=== PATIENT | male | born 1985 | race Caucasian/White ===

== ENCOUNTER 2020-05-30 08:22 | Emergency (ER) | payer SELFPAY ==
[2020-05-30] MEDS ORDERED: Ketorolac 60 MG/2 ML SDV IM ONE (09:00)
--- NOTE | 2020-05-30 09:25 | EDM.PDOC ---
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 He denies any weakness numbness or tingling in the arm or hand and he says that any movement of the shoulder hurts significantly. He has not seen an orthopedist for this and he denies any dave trauma. He says at times happens in his right shoulder but today is in his left shoulder, no redness around it or fevers. No neck pain. Time Seen by Provider: 05/30/20 08:45 - History of Present Illness Onset: Gradual Left Shoulder Pain Score (Numeric/FACES): 6 - Related Data Allergies Allergy/AdvReac Type Severity Reaction Status Date / Time No Known Allergies Allergy Verified 05/30/20 08:38 Home Meds: Home Meds Gabapentin [Neurontin] 300 mg PO BID 05/30/20 [History] cloNIDine [Catapres] 0.2 mg PO Q12HR 05/30/20 [History] Past Medical History Cardiovascular History: Reports: Hypertension Musculoskeletal History: Reports: Fracture Neurological History: Reports: Seizure Psychiatric History: Reports: Anxiety Social & Family History - Tobacco Use Smoking Status *Q: Current Every Day Smoker Years of Tobacco use: 18 Packs/Tins Daily: 1 - Caffeine Use Caffeine Use: Reports: None - Alcohol Use Days Per Week of Alcohol Use: 7 Number of Drinks Per Day: 4 Total Drinks Per Week: 28 - Recreational Drug Use Recreational Drug Use: Yes Recreational Drug Type: Reports: Marijuana/Hashish Recreational Drug Use Frequency: Weekly Review of Systems - Review of Systems Review Of Systems: Comprehensive ROS is negative, except as noted in HPI. ED EXAM, GENERAL - Physical Exam Exam: See Below Exam Limited By: No Limitations General Appearance: Alert Nose: Normal Inspection Throat/Mouth: Normal Inspection Head: Atraumatic Neck: Normal Inspection. No: Limited Range of Motion Respiratory/Chest: No Respiratory Distress Cardiovascular: Normal Peripheral Pulses, Regular Rate, Rhythm GI/Abdominal: Soft Back Exam: Normal Inspection Extremities: Normal Inspection (Patient refuses to move the left shoulder secondary to pain. No obvious effusion, no neurovascular deficits. No obvious deformity, radial ulnar median nerves are intact to sensation and strength of the hand. Good pulses at the wrist.) Neurological: Alert Psychiatric: Normal Affect Skin Exam: Warm, No Rash Course - Vital Signs Text/Narrative:: Patient did well here in the ER received a shot of Toradol and I told him his x- rays look good and he will need to follow-up with orthopedics and I have told him he should try to use ibuprofen for pain control but if the arm hurts that bad he will need to put it in the sling and not move it. If rest does not get this better he may end up with an MRI of his shoulder with orthopedics follow- up. I did not feel narcotics were indicated for this type of musculoskeletal pain Last Recorded V/S: Last Vital Signs Temp 98.9 F 05/30/20 08:45 Pulse 107 H 05/30/20 08:45 Resp 14 05/30/20 08:45 BP 148/92 H 05/30/20 08:45 Pulse Ox 98 05/30/20 08:45 - Orders/Labs/Meds Meds: Medications Discontinued Medications Generic Name Dose Route Start Last Admin Trade Name Renetta PRN Reason Stop Dose Admin Ketorolac Tromethamine 60 mg 05/30/20 09:00 05/30/20 09:05 Toradol IM 05/30/20 09:01 60 mg ONETIME ONE Administration Departure - Departure Time of Disposition: 09:27 Disposition: Home, Self-Care 01 Condition: Good Clinical Impression: Sprain of shoulder - Discharge Information *PRESCRIPTION DRUG MONITORING PROGRAM REVIEWED*: No *COPY OF PRESCRIPTION DRUG MONITORING REPORT IN PATIENT EMILIA: No Instructions: Shoulder Sprain Referrals: PCP,None [Ordering Only Provider] - 3 Days Forms: ED Department Discharge Sepsis Event Note (ED) - Evaluation Sepsis Screening Result: No Definite Risk
--- NOTE | 2020-05-30 09:35 | CR ---
Shoulder Comp Lt CLINICAL HISTORY: Chronic left shoulder pain FINDINGS: There is no acute fracture or dislocation in the left shoulder. Articular surfaces are smooth. Impression: Negative
== END 2020-05-30 09:44 | disposition home or self-care (01) ==
LOC: JP.ED 08:22
DX: S43.402A Unspecified sprain of left shoulder joint, initial encounter (principal); I10 Essential (primary) hypertension; F17.210 Nicotine dependence, cigarettes, uncomplicated; Z79.899 Other long term (current) drug therapy; X58.XXXA Exposure to other specified factors, initial encounter
CPT/HCPCS: 73030; 96372; 99283; J1885